=== PATIENT | female | born 1935 | race Caucasian/White ===

== ENCOUNTER 2020-09-18 16:46 | Inpatient (IN) ==
[2020-09-18 18:00] LABS: Basophils # 0.1 K/mcL (0.0-0.2); Basophils % 0.9 %; Eosinophils # 0.2 K/mcL (0.0-0.6); Eosinophils % 1.1 %; Hematocrit 31.9 % (35.3-44.9); Hemoglobin 10.1 g/dL (11.5-15.4); Immature Granulocytes % 4.5 % (0-4); Lymphocytes # 1.1 K/mcL (0.6-4.6); Lymphocytes % 7.4 %; Mean Corpuscular HGB Conc 31.7 g/dL (31.6-35.5); Mean Corpuscular Volume 91.7 fL (83.0-100.0); Mean Platelet Volume 8.8 fL (9.4-12.4); Monocytes # 0.8 K/mcL (0.0-1.3); Monocytes % 5.2 %; Neutrophils # 12.2 K/mcL (1.6-8.9); Nucleated Red Blood Cells 0.1 /100 WBC (0); Platelet Count 798 K/mcL (140-400); Red Blood Count 3.48 M/mcL (3.82-4.97); Red Cell Distribution Width 14.4 % (11.5-14.5); Segmented Neutrophils % 80.9 %
[2020-09-18 18:07] LABS: Bilirubin,Urine Small (Negative); Blood,Urine Large (Negative); Clarity,Urine Turbid (Clear); Color,Urine Brown (Yellow); Glucose,Urine (UA) Normal (Normal); Ketones,Urine Negative (Negative); Leukocyte Esterase,Urine Small (Negative); Nitrite,Urine Negative (Negative); PH,Urine 5.5 pH Units (5.0-8.0); Protein,Urine >=300 mg/dL (Neg-Trace); Specific Gravity,Urine >= 1.030 (1.010-1.025); Urobilinogen,Urine Normal (Normal)
[2020-09-18 18:21] LABS: Calcium 9.6 mg/dL (8.6-10.3); Potassium 4.9 mEq/L (3.5-5.1)
[2020-09-18 18:24] LABS: Bacteria,Urine Present per hpf (None-Few); RBC,Urine TNTC per hpf (0-3); WBC,Urine Present per hpf (0-3)
[2020-09-18] MEDS ORDERED: 0.9 % Sodium Chloride 1,000 ML IVC ONE (18:34)
[2020-09-18] MEDS ORDERED: Piperacillin/Tazobactam 3.375 GM in 0.9 % Sodium Chloride Mini Bag 100 ML IVPB ONE (19:55)
[2020-09-18 19:56] LABS: INR 1.2; Prothrombin Time 13.9 Seconds (9.4-12.1)
[2020-09-18 19:58] LABS: Activated Partial Thrombo Time 38.1 Seconds (26.0-36.0)
[2020-09-18] MEDS ORDERED: Vancomycin 2,000 MG/520 ML IV.SOLN IVPB STA (20:05)
[2020-09-18 20:10] LABS: Albumin 3.5 g/dL (3.5-5.7); Albumin/Globulin Ratio 0.9 (1.1-2.2); Bilirubin,Direct 0.1 mg/dL (0.0-0.2); Bilirubin,Indirect 0.2 mg/dL (0.0-1.0); Bilirubin,Total 0.3 mg/dL (0.3-1.0); Globulin 4.1 g/dL (2.4-3.5); Magnesium 2.9 mg/dL (1.6-2.6); Phosphorous 5.3 mg/dL (2.7-4.5); Total Protein 7.6 g/dL (6.4-8.9); Troponin I 0.03 ng/mL (< 0.04)
[2020-09-18 21:29] LABS: Uric Acid 8.5 mg/dL (2.3-7.6)
[2020-09-18 21:42] LABS: Thyroid Stimulating Hormone 3.574 mcIU/mL (0.340-5.600)
[2020-09-18] MEDS ORDERED: Naloxone 0.4 MG/ML INJ IVP PRN (23:25)
[2020-09-18] MEDS ORDERED: Acetaminophen 325 MG TABLET PO PRN (23:25)
[2020-09-18] MEDS ORDERED: Ondansetron 4 MG/2 ML VIAL IVP PRN (23:25)
[2020-09-18] MEDS ORDERED: *HR* Dextrose 50 % in Water (Vial) 50 ML VIAL IVP PRN (23:27)
[2020-09-18] MEDS ORDERED: D5% in Water 1,000 ML IVC PRN (23:27)
[2020-09-18] MEDS ORDERED: Dextrose Gel 15 GM/37.5 ML TUBE PO PRN ×2 (23:27)
[2020-09-18] MEDS: Ipratropium/Albuterol Neb 3 ML IH SCH (23:48)
[2020-09-19] MEDS ORDERED: 0.9 % Sodium Chloride 1,000 ML IVC SCH (01:15)
[2020-09-19] MEDS ORDERED: Perflutren Lipid Microsphere 1.3 ML in 0.9 % Sodium Chloride 8.7 ML IVP PRN (01:18)
[2020-09-19] MEDS: Azithromycin 500 MG in 0.9 % Sodium Chloride 250 ML IVPB SCH (01:48)
[2020-09-19] MEDS: Ipratropium/Albuterol Neb 3 ML IH SCH ×4 (03:44→22:05)
[2020-09-19 05:10] LABS: Hemoglobin 9.4 g/dL (11.5-15.4); Mean Corpuscular HGB Conc 31.3 g/dL (31.6-35.5); Mean Corpuscular Hemoglobin 28.7 pg (28.0-33.3); Mean Corpuscular Volume 91.7 fL (83.0-100.0); Nucleated Red Blood Cells 0.1 /100 WBC (0); Red Blood Count 3.27 M/mcL (3.82-4.97); Red Cell Distribution Width 14.6 % (11.5-14.5)
[2020-09-19 05:12] LABS: Basophils # 0.1 K/mcL (0.0-0.2); Basophils % 0.6 %; Eosinophils # 0.2 K/mcL (0.0-0.6); Immature Granulocytes % 4.1 % (0-4); Immature Platelets 1.6 % (1.1-6.1); Lymphocytes # 1.1 K/mcL (0.6-4.6); Lymphocytes % 6.5 %; Monocytes # 0.8 K/mcL (0.0-1.3); Monocytes % 4.9 %; Neutrophils # 13.7 K/mcL (1.6-8.9); Platelet Count 732 K/mcL (140-400); Segmented Neutrophils % 82.9 %; White Blood Count 16.5 K/mcL (4.3-11.1)
[2020-09-19 05:12] LABS: Sodium, Urine 21.7 mEq/L
[2020-09-19 05:13] LABS: Calcium 8.9 mg/dL (8.6-10.3); Magnesium 2.9 mg/dL (1.6-2.6); Phosphorous 5.7 mg/dL (2.7-4.5)
[2020-09-19 05:30] LABS: Protein/Creatinine Ratio,Urine 1.51 mg/mg (0.00-0.20)
[2020-09-19] MEDS: *HR* Heparin 5,000 UNIT/ML VIAL SQ SCH ×3 (06:40→21:41)
[2020-09-19] MEDS: amLODIPine 5 MG TABLET PO SCH (09:31)
[2020-09-19] MEDS: Metoprolol XL (24 HR) Succ 50 MG TAB.ER.24H PO SCH (09:31)
[2020-09-19] MEDS: hydrALAZINE 25 MG TABLET PO SCH (09:32)
[2020-09-19] MEDS: Insulin LISPRO 300 UNITS/3 ML VIAL SUBQ SCH ×4 (09:32→21:35)
[2020-09-19] MEDS: Piperacillin/Tazobactam 3.375 GM in 0.9 % Sodium Chloride Mini Bag 100 ML IVPB SCH ×2 (09:33→21:40)
[2020-09-20] MEDS: Azithromycin 500 MG in 0.9 % Sodium Chloride 250 ML IVPB SCH (02:34)
[2020-09-20 03:35] LABS: Basophils # 0.1 K/mcL (0.0-0.2); Basophils % 0.9 %; Eosinophils # 0.4 K/mcL (0.0-0.6); Eosinophils % 2.9 %; Hematocrit 28.4 % (35.3-44.9); Hemoglobin 8.7 g/dL (11.5-15.4); Immature Granulocytes % 4.7 % (0-4); Lymphocytes # 1.1 K/mcL (0.6-4.6); Lymphocytes % 7.9 %; Mean Corpuscular HGB Conc 30.6 g/dL (31.6-35.5); Mean Corpuscular Hemoglobin 28.8 pg (28.0-33.3); Mean Platelet Volume 8.5 fL (9.4-12.4); Monocytes # 0.7 K/mcL (0.0-1.3); Platelet Count 639 K/mcL (140-400); Red Blood Count 3.02 M/mcL (3.82-4.97); Red Cell Distribution Width 14.6 % (11.5-14.5); Segmented Neutrophils % 78.6 %
[2020-09-20 03:52] LABS: Calcium 8.6 mg/dL (8.6-10.3); Phosphorous 5.5 mg/dL (2.7-4.5); Potassium 4.7 mEq/L (3.5-5.1)
[2020-09-20] MEDS: Ipratropium Neb 0.5 MG NEBULIZER IH SCH ×4 (03:54→21:39)
[2020-09-20] MEDS: Levalbuterol Neb 1.25 MG/3 ML IH SCH ×4 (03:54→21:39)
[2020-09-20] MEDS: *HR* Heparin 5,000 UNIT/ML VIAL SQ SCH ×3 (06:08→23:22)
[2020-09-20] MEDS: Insulin LISPRO 300 UNITS/3 ML VIAL SUBQ SCH ×4 (07:51→23:18)
[2020-09-20] MEDS: Piperacillin/Tazobactam 3.375 GM in 0.9 % Sodium Chloride Mini Bag 100 ML IVPB SCH (09:05)
[2020-09-20] MEDS: Metoprolol XL (24 HR) Succ 50 MG TAB.ER.24H PO SCH (09:06)
[2020-09-20] MEDS ORDERED: cefTRIAXone 1,000 MG in 0.9 % Sodium Chloride Mini Bag 100 ML IVPB SCH (17:00)
[2020-09-20] MEDS: Fluconazole 100 MG TABLET PO SCH (18:38)
[2020-09-21] MEDS: Ipratropium Neb 0.5 MG NEBULIZER IH SCH ×4 (04:05→21:34)
[2020-09-21] MEDS: Levalbuterol Neb 1.25 MG/3 ML IH SCH ×4 (04:05→21:34)
[2020-09-21] MEDS: *HR* Heparin 5,000 UNIT/ML VIAL SQ SCH ×3 (05:02→21:18)
[2020-09-21 06:02] LABS: Basophils % 0.3 %; Eosinophils # 0.4 K/mcL (0.0-0.6); Eosinophils % 2.4 %; Hematocrit 32.3 % (35.3-44.9); Hemoglobin 9.8 g/dL (11.5-15.4); Immature Granulocytes % 5.4 % (0-4); Lymphocytes # 1.4 K/mcL (0.6-4.6); Lymphocytes % 9.1 %; Mean Corpuscular HGB Conc 30.3 g/dL (31.6-35.5); Mean Corpuscular Hemoglobin 28.6 pg (28.0-33.3); Mean Corpuscular Volume 94.2 fL (83.0-100.0); Mean Platelet Volume 8.7 fL (9.4-12.4); Monocytes # 0.9 K/mcL (0.0-1.3); Monocytes % 5.5 %; Neutrophils # 11.9 K/mcL (1.6-8.9); Nucleated Red Blood Cells 0.1 /100 WBC (0); Platelet Count 636 K/mcL (140-400); Red Blood Count 3.43 M/mcL (3.82-4.97); Red Cell Distribution Width 14.8 % (11.5-14.5); Segmented Neutrophils % 77.3 %; White Blood Count 15.4 K/mcL (4.3-11.1)
[2020-09-21 06:14] LABS: Basophils # 0.1 K/mcL (0.0-0.2)
[2020-09-21 08:24] LABS: Phosphorous 5.6 mg/dL (2.7-4.5); Potassium 4.8 mEq/L (3.5-5.1)
[2020-09-21] MEDS: Insulin LISPRO 300 UNITS/3 ML VIAL SUBQ SCH ×4 (08:47→21:15)
[2020-09-21] MEDS: Fluconazole 100 MG TABLET PO SCH (08:49)
[2020-09-21] MEDS: Metoprolol XL (24 HR) Succ 50 MG TAB.ER.24H PO SCH (08:49)
[2020-09-21] MEDS: cefTRIAXone 2,000 MG in Water for inj. (sterile) 20 ML IVP SCH (16:41)
[2020-09-22] MEDS: Ipratropium Neb 0.5 MG NEBULIZER IH SCH ×4 (03:24→22:10)
[2020-09-22] MEDS: Levalbuterol Neb 1.25 MG/3 ML IH SCH ×4 (03:24→22:10)
[2020-09-22 03:45] LABS: Albumin/Globulin Ratio 0.9 (1.1-2.2); Bilirubin,Indirect 0.2 mg/dL (0.0-1.0); Bilirubin,Total 0.2 mg/dL (0.3-1.0); Calcium 8.8 mg/dL (8.6-10.3); Globulin 3.4 g/dL (2.4-3.5); Magnesium 2.9 mg/dL (1.6-2.6); Phosphorous 5.3 mg/dL (2.7-4.5); Potassium 5.1 mEq/L (3.5-5.1); Total Protein 6.4 g/dL (6.4-8.9)
[2020-09-22] MEDS: *HR* Heparin 5,000 UNIT/ML VIAL SQ SCH ×3 (05:06→21:14)
[2020-09-22 05:37] LABS: Basophils # 0.1 K/mcL (0.0-0.2); Basophils % 0.8 %; Eosinophils # 0.4 K/mcL (0.0-0.6); Eosinophils % 2.6 %; Hematocrit 29.5 % (35.3-44.9); Hemoglobin 9.2 g/dL (11.5-15.4); Immature Granulocytes % 4.5 % (0-4); Lymphocytes # 1.5 K/mcL (0.6-4.6); Lymphocytes % 10.6 %; Mean Corpuscular HGB Conc 31.2 g/dL (31.6-35.5); Mean Corpuscular Hemoglobin 29.6 pg (28.0-33.3); Mean Corpuscular Volume 94.9 fL (83.0-100.0); Mean Platelet Volume 8.7 fL (9.4-12.4); Monocytes % 7.3 %; Neutrophils # 10.3 K/mcL (1.6-8.9); Nucleated Red Blood Cells 0.1 /100 WBC (0); Platelet Count 570 K/mcL (140-400); Red Blood Count 3.11 M/mcL (3.82-4.97); Red Cell Distribution Width 14.9 % (11.5-14.5); Segmented Neutrophils % 74.2 %; White Blood Count 13.9 K/mcL (4.3-11.1)
[2020-09-22 06:22] LABS: Folate 21.5 ng/mL (3.0-16.0)
[2020-09-22 06:26] LABS: Vitamin B12 > 1500 pg/mL (250-1100)
[2020-09-22] MEDS: Insulin LISPRO 300 UNITS/3 ML VIAL SUBQ SCH ×4 (08:31→21:08)
[2020-09-22] MEDS: Fluconazole 100 MG TABLET PO SCH (08:31)
[2020-09-22] MEDS: Metoprolol XL (24 HR) Succ 50 MG TAB.ER.24H PO SCH (08:32)
[2020-09-22] MEDS: Lactobacillus 1 EACH CAP.SPRINK PO SCH ×2 (08:32→21:15)
[2020-09-22] MEDS: amLODIPine 5 MG TABLET PO SCH (09:29)
[2020-09-22] MEDS: hydrALAZINE 25 MG TABLET PO SCH ×2 (09:29→21:15)
[2020-09-22 11:56] LABS: Serine Protease-3 Antibody 6 AU/mL (0-19)
[2020-09-22] MEDS: Sodium Bicarbonate 50 MEQ in 0.45 % Sodium Chloride 1,000 ML IVC SCH (14:13)
[2020-09-22] MEDS: cefTRIAXone 2,000 MG in Water for inj. (sterile) 20 ML IVP SCH (16:27)
[2020-09-23] MEDS: Levalbuterol Neb 1.25 MG/3 ML IH SCH ×4 (03:50→22:25)
[2020-09-23] MEDS: Ipratropium Neb 0.5 MG NEBULIZER IH SCH ×4 (03:50→22:25)
[2020-09-23 05:41] LABS: Basophils # 0.1 K/mcL (0.0-0.2); Basophils % 0.9 %; Eosinophils # 0.4 K/mcL (0.0-0.6); Eosinophils % 3.1 %; Hematocrit 28.8 % (35.3-44.9); Hemoglobin 8.9 g/dL (11.5-15.4); Immature Granulocytes % 4.1 % (0-4); Lymphocytes # 1.3 K/mcL (0.6-4.6); Lymphocytes % 9.6 %; Mean Corpuscular HGB Conc 30.9 g/dL (31.6-35.5); Mean Corpuscular Volume 93.8 fL (83.0-100.0); Mean Platelet Volume 8.6 fL (9.4-12.4); Monocytes # 1.1 K/mcL (0.0-1.3); Neutrophils # 10.3 K/mcL (1.6-8.9); Nucleated Red Blood Cells 0.1 /100 WBC (0); Platelet Count 484 K/mcL (140-400); Red Blood Count 3.07 M/mcL (3.82-4.97); Red Cell Distribution Width 15.1 % (11.5-14.5); Segmented Neutrophils % 74.3 %; White Blood Count 13.9 K/mcL (4.3-11.1)
[2020-09-23] MEDS: *HR* Heparin 5,000 UNIT/ML VIAL SQ SCH ×3 (05:43→20:25)
[2020-09-23 06:01] LABS: Calcium 8.8 mg/dL (8.6-10.3); Magnesium 2.7 mg/dL (1.6-2.6); Phosphorous 4.3 mg/dL (2.7-4.5); Potassium 4.5 mEq/L (3.5-5.1)
[2020-09-23] MEDS: Insulin LISPRO 300 UNITS/3 ML VIAL SUBQ SCH ×4 (07:32→20:27)
[2020-09-23] MEDS: hydrALAZINE 25 MG TABLET PO SCH ×2 (07:32→20:26)
[2020-09-23] MEDS: Lactobacillus 1 EACH CAP.SPRINK PO SCH ×2 (07:32→20:25)
[2020-09-23] MEDS: Metoprolol XL (24 HR) Succ 50 MG TAB.ER.24H PO SCH (07:32)
[2020-09-23] MEDS: amLODIPine 5 MG TABLET PO SCH (07:33)
[2020-09-23] MEDS: cefTRIAXone 2,000 MG in Water for inj. (sterile) 20 ML IVP SCH (18:06)
[2020-09-23] MEDS: Sodium Bicarbonate 50 MEQ in 0.45 % Sodium Chloride 1,000 ML IVC SCH (20:27)
[2020-09-24] MEDS: Sodium Bicarbonate 50 MEQ in 0.45 % Sodium Chloride 1,000 ML IVC SCH (03:18)
[2020-09-24] MEDS: Ipratropium Neb 0.5 MG NEBULIZER IH SCH ×4 (03:25→21:34)
[2020-09-24] MEDS: Levalbuterol Neb 1.25 MG/3 ML IH SCH ×4 (03:25→21:34)
[2020-09-24] MEDS: *HR* Heparin 5,000 UNIT/ML VIAL SQ SCH ×3 (05:03→21:35)
[2020-09-24 05:20] LABS: Basophils # 0.1 K/mcL (0.0-0.2); Basophils % 0.9 %; Eosinophils # 0.3 K/mcL (0.0-0.6); Eosinophils % 2.5 %; Hematocrit 30.5 % (35.3-44.9); Hemoglobin 9.3 g/dL (11.5-15.4); Immature Granulocytes % 4.3 % (0-4); Lymphocytes # 1.5 K/mcL (0.6-4.6); Lymphocytes % 10.9 %; Mean Corpuscular HGB Conc 30.5 g/dL (31.6-35.5); Mean Corpuscular Hemoglobin 29.1 pg (28.0-33.3); Mean Corpuscular Volume 95.3 fL (83.0-100.0); Mean Platelet Volume 8.9 fL (9.4-12.4); Monocytes % 7.4 %; Neutrophils # 9.9 K/mcL (1.6-8.9); Platelet Count 444 K/mcL (140-400); Red Cell Distribution Width 15.4 % (11.5-14.5); White Blood Count 13.3 K/mcL (4.3-11.1)
[2020-09-24 05:41] LABS: Albumin 3.2 g/dL (3.5-5.7); Albumin/Globulin Ratio 0.9 (1.1-2.2); Bilirubin,Indirect 0.2 mg/dL (0.0-1.0); Bilirubin,Total 0.2 mg/dL (0.3-1.0); Calcium 9.2 mg/dL (8.6-10.3); Globulin 3.4 g/dL (2.4-3.5); Magnesium 2.7 mg/dL (1.6-2.6); Phosphorous 4.1 mg/dL (2.7-4.5); Potassium 4.5 mEq/L (3.5-5.1); Total Protein 6.6 g/dL (6.4-8.9)
[2020-09-24] MEDS: Metoprolol XL (24 HR) Succ 50 MG TAB.ER.24H PO SCH (08:09)
[2020-09-24] MEDS: amLODIPine 5 MG TABLET PO SCH (08:09)
[2020-09-24] MEDS: Insulin LISPRO 300 UNITS/3 ML VIAL SUBQ SCH ×4 (08:10→21:31)
[2020-09-24] MEDS: Lactobacillus 1 EACH CAP.SPRINK PO SCH ×2 (08:10→21:28)
[2020-09-24] MEDS: cefTRIAXone 2,000 MG in Water for inj. (sterile) 20 ML IVP SCH (16:24)
[2020-09-24] MEDS: Mirtazapine 15 MG TABLET PO SCH (21:28)
[2020-09-25 01:01] LABS: Basophils # 0.1 K/mcL (0.0-0.2); Basophils % 0.8 %; Eosinophils # 0.3 K/mcL (0.0-0.6); Eosinophils % 1.7 %; Hematocrit 32.3 % (35.3-44.9); Hemoglobin 9.7 g/dL (11.5-15.4); Immature Granulocytes % 3.1 % (0-4); Lymphocytes # 1.1 K/mcL (0.6-4.6); Lymphocytes % 7.8 %; Mean Corpuscular Hemoglobin 28.4 pg (28.0-33.3); Mean Corpuscular Volume 94.7 fL (83.0-100.0); Monocytes # 0.9 K/mcL (0.0-1.3); Monocytes % 6.4 %; Neutrophils # 11.7 K/mcL (1.6-8.9); Nucleated Red Blood Cells 0.1 /100 WBC (0); Platelet Count 457 K/mcL (140-400); Red Blood Count 3.41 M/mcL (3.82-4.97); Red Cell Distribution Width 15.5 % (11.5-14.5); Segmented Neutrophils % 80.2 %; White Blood Count 14.6 K/mcL (4.3-11.1)
[2020-09-25 01:15] LABS: Potassium 4.7 mEq/L (3.5-5.1)
[2020-09-25 01:16] LABS: Calcium 9.5 mg/dL (8.6-10.3); Magnesium 2.8 mg/dL (1.6-2.6)
[2020-09-25] MEDS: Ipratropium Neb 0.5 MG NEBULIZER IH SCH ×4 (03:36→22:35)
[2020-09-25] MEDS: Levalbuterol Neb 1.25 MG/3 ML IH SCH ×4 (03:36→22:35)
[2020-09-25] MEDS: *HR* Heparin 5,000 UNIT/ML VIAL SQ SCH ×3 (06:04→21:41)
[2020-09-25] MEDS: Insulin LISPRO 300 UNITS/3 ML VIAL SUBQ SCH ×4 (07:51→21:41)
[2020-09-25] MEDS: amLODIPine 5 MG TABLET PO SCH (08:04)
[2020-09-25] MEDS: Metoprolol XL (24 HR) Succ 50 MG TAB.ER.24H PO SCH (08:04)
[2020-09-25] MEDS: Lactobacillus 1 EACH CAP.SPRINK PO SCH ×2 (08:04→21:41)
[2020-09-25 12:10] LABS: Amorphous Sediment,Urine Few per hpf (None-Few); Bacteria,Urine Few per hpf (None-Few); Bilirubin,Urine Negative (Negative); Blood,Urine Large (Negative); Clarity,Urine Ex.Turbid (Clear); Color,Urine Yellow (Yellow); Glucose,Urine (UA) Normal (Normal); Ketones,Urine Negative (Negative); Leukocyte Esterase,Urine Large (Negative); Nitrite,Urine Negative (Negative); PH,Urine 5.5 pH Units (5.0-8.0); Protein,Urine 50 mg/dL (Neg-Trace); RBC,Urine TNTC per hpf (0-3); Specific Gravity,Urine 1.017 (1.010-1.025); Urobilinogen,Urine Normal (Normal); WBC,Urine TNTC per hpf (0-3)
[2020-09-25] MEDS: cefTRIAXone 2,000 MG in Water for inj. (sterile) 20 ML IVP SCH (17:57)
[2020-09-25] MEDS: Mirtazapine 15 MG TABLET PO SCH (21:41)
[2020-09-26 03:37] LABS: Basophils # 0.1 K/mcL (0.0-0.2); Basophils % 0.7 %; Eosinophils # 0.2 K/mcL (0.0-0.6); Eosinophils % 1.5 %; Hematocrit 36.1 % (35.3-44.9); Hemoglobin 10.9 g/dL (11.5-15.4); Immature Granulocytes % 2.5 % (0-4); Lymphocytes # 0.9 K/mcL (0.6-4.6); Lymphocytes % 6.6 %; Mean Corpuscular HGB Conc 30.2 g/dL (31.6-35.5); Mean Corpuscular Hemoglobin 29.1 pg (28.0-33.3); Mean Corpuscular Volume 96.5 fL (83.0-100.0); Mean Platelet Volume 9.4 fL (9.4-12.4); Monocytes # 0.9 K/mcL (0.0-1.3); Monocytes % 6.5 %; Neutrophils # 11.3 K/mcL (1.6-8.9); Nucleated Red Blood Cells 0.1 /100 WBC (0); Platelet Count 373 K/mcL (140-400); Red Blood Count 3.74 M/mcL (3.82-4.97); Red Cell Distribution Width 15.8 % (11.5-14.5); Segmented Neutrophils % 82.2 %; White Blood Count 13.8 K/mcL (4.3-11.1)
[2020-09-26] MEDS: Ipratropium Neb 0.5 MG NEBULIZER IH SCH ×4 (03:42→23:40)
[2020-09-26] MEDS: Levalbuterol Neb 1.25 MG/3 ML IH SCH ×4 (03:42→23:40)
[2020-09-26 03:54] LABS: Calcium 9.9 mg/dL (8.6-10.3); Magnesium 2.7 mg/dL (1.6-2.6); Potassium 4.8 mEq/L (3.5-5.1)
[2020-09-26] MEDS: *HR* Heparin 5,000 UNIT/ML VIAL SQ SCH ×3 (05:58→21:20)
[2020-09-26] MEDS: Insulin LISPRO 300 UNITS/3 ML VIAL SUBQ SCH ×4 (07:16→21:20)
[2020-09-26] MEDS: amLODIPine 5 MG TABLET PO SCH (07:40)
[2020-09-26] MEDS: Lactobacillus 1 EACH CAP.SPRINK PO SCH ×2 (07:40→21:20)
[2020-09-26] MEDS: Metoprolol XL (24 HR) Succ 50 MG TAB.ER.24H PO SCH (07:40)
[2020-09-26 14:04] LABS: ABG Base Excess -1 mEq/L (-2 to 3); ABG HCO3 24 mEq/L (21-27); ABG Oxygen Saturation 86 % (95-98); ABG PCO2 41 mmHg (35-45); ABG PH 7.38 pH Units (7.32-7.45); ABG PO2 52 mmHg (85-104); ABG TCO2 26 mEq/L (20-26)
[2020-09-26] MEDS ORDERED: Perflutren Lipid Microsphere 1.3 ML in 0.9 % Sodium Chloride 8.7 ML IVP PRN (14:05)
[2020-09-26] MEDS ORDERED: Furosemide 40 MG/4 ML VIAL IVP ONE (14:29)
[2020-09-26 17:52] LABS: Adenovirus Not Detected (Not Detect); Coronavirus 229E Not Detected (Not Detect); Coronavirus HKU1 Not Detected (Not Detect); Coronavirus NL63 Not Detected (Not Detect); Coronavirus OC43 Not Detected (Not Detect); Human Metapneumovirus DETECTED (Not Detect); Human Rhinovirus/Enterovirus Not Detected (Not Detect); SARS-CoV-2 Not Detected (Not Detect)
[2020-09-26 17:53] LABS: Bordetella Pertussis Not Detected (Not Detect); Chlamydophila pneumoniae Not Detected (Not Detect); Influenza A Subtype 2009 H1 Not Detected (Not Detect); Influenza B Not Detected (Not Detect); Mycoplasma pneumoniae Not Detected (Not Detect); Parainfluenza Virus 1 Not Detected (Not Detect); Parainfluenza Virus 2 Not Detected (Not Detect); Parainfluenza Virus 3 Not Detected (Not Detect); Parainfluenza Virus 4 Not Detected (Not Detect); Respiratory Syncytial Virus Not Detected (Not Detect)
[2020-09-26] MEDS: cefTRIAXone 2,000 MG in Water for inj. (sterile) 20 ML IVP SCH (18:14)
[2020-09-27] MEDS: Ipratropium Neb 0.5 MG NEBULIZER IH SCH ×4 (04:27→22:04)
[2020-09-27] MEDS: Levalbuterol Neb 1.25 MG/3 ML IH SCH ×4 (04:27→22:04)
[2020-09-27] MEDS: *HR* Heparin 5,000 UNIT/ML VIAL SQ SCH ×3 (05:23→21:48)
[2020-09-27 06:07] LABS: VBG HCO3 24 mEq/L (21-27); VBG PCO2 42 mmHg (41-51); VBG PH 7.37 pH Units (7.32-7.42); VBG PO2 94 mmHg (25-50)
[2020-09-27 06:11] LABS: Basophils # 0.1 K/mcL (0.0-0.2); Basophils % 0.6 %; Eosinophils # 0.2 K/mcL (0.0-0.6); Eosinophils % 1.5 %; Hematocrit 31.8 % (35.3-44.9); Hemoglobin 9.7 g/dL (11.5-15.4); Immature Granulocytes % 2.2 % (0-4); Lymphocytes # 0.9 K/mcL (0.6-4.6); Lymphocytes % 7.4 %; Mean Corpuscular HGB Conc 30.5 g/dL (31.6-35.5); Mean Corpuscular Hemoglobin 29.5 pg (28.0-33.3); Mean Corpuscular Volume 96.7 fL (83.0-100.0); Mean Platelet Volume 9.5 fL (9.4-12.4); Monocytes # 0.8 K/mcL (0.0-1.3); Monocytes % 6.8 %; Neutrophils # 10.1 K/mcL (1.6-8.9); Platelet Count 348 K/mcL (140-400); Red Blood Count 3.29 M/mcL (3.82-4.97); Red Cell Distribution Width 15.9 % (11.5-14.5); Segmented Neutrophils % 81.5 %; White Blood Count 12.4 K/mcL (4.3-11.1)
[2020-09-27 06:28] LABS: Calcium 9.7 mg/dL (8.6-10.3); Magnesium 2.7 mg/dL (1.6-2.6); Potassium 4.8 mEq/L (3.5-5.1)
[2020-09-27] MEDS: Insulin LISPRO 300 UNITS/3 ML VIAL SUBQ SCH ×4 (07:25→21:49)
[2020-09-27] MEDS: Metoprolol XL (24 HR) Succ 50 MG TAB.ER.24H PO SCH (09:16)
[2020-09-27] MEDS: Lactobacillus 1 EACH CAP.SPRINK PO SCH ×2 (09:16→21:49)
[2020-09-27] MEDS: Azithromycin 500 MG in 0.9 % Sodium Chloride 250 ML IVPB SCH (11:57)
[2020-09-27] MEDS: Budesonide Neb 0.25 MG/2 ML IH SCH ×2 (12:13→22:04)
[2020-09-27] MEDS: cefTRIAXone 2,000 MG in Water for inj. (sterile) 20 ML IVP SCH (18:00)
[2020-09-28] MEDS: Ipratropium Neb 0.5 MG NEBULIZER IH SCH ×4 (03:47→22:01)
[2020-09-28] MEDS: Levalbuterol Neb 1.25 MG/3 ML IH SCH ×4 (03:47→22:02)
[2020-09-28 05:57] LABS: Basophils # 0.1 K/mcL (0.0-0.2); Basophils % 0.9 %; Eosinophils # 0.1 K/mcL (0.0-0.6); Hematocrit 33.4 % (35.3-44.9); Hemoglobin 9.7 g/dL (11.5-15.4); Immature Granulocytes % 1.3 % (0-4); Lymphocytes % 7.7 %; Mean Corpuscular Hemoglobin 29.5 pg (28.0-33.3); Mean Corpuscular Volume 101.5 fL (83.0-100.0); Mean Platelet Volume 10.3 fL (9.4-12.4); Monocytes % 7.6 %; Neutrophils # 10.4 K/mcL (1.6-8.9); Platelet Count 196 K/mcL (140-400); Red Blood Count 3.29 M/mcL (3.82-4.97); Red Cell Distribution Width 16.2 % (11.5-14.5); Segmented Neutrophils % 81.5 %; White Blood Count 12.8 K/mcL (4.3-11.1)
[2020-09-28] MEDS: *HR* Heparin 5,000 UNIT/ML VIAL SQ SCH ×3 (06:26→20:42)
[2020-09-28 06:42] LABS: Potassium 5.4 mEq/L (3.5-5.1)
[2020-09-28 07:00] LABS: Calcium 9.4 mg/dL (8.6-10.3); Magnesium 2.7 mg/dL (1.6-2.6)
[2020-09-28] MEDS: Insulin LISPRO 300 UNITS/3 ML VIAL SUBQ SCH ×4 (08:01→22:05)
[2020-09-28] MEDS: Metoprolol XL (24 HR) Succ 50 MG TAB.ER.24H PO SCH (08:14)
[2020-09-28] MEDS: Lactobacillus 1 EACH CAP.SPRINK PO SCH ×2 (08:14→20:44)
[2020-09-28] MEDS: Budesonide Neb 0.25 MG/2 ML IH SCH ×2 (09:29→22:01)
[2020-09-28] MEDS: Azithromycin 500 MG in 0.9 % Sodium Chloride 250 ML IVPB SCH (12:01)
[2020-09-28] MEDS ORDERED: Furosemide 20 MG/2 ML VIAL IVP ONE (15:57)
[2020-09-28] MEDS ORDERED: *HR* Metoprolol 5 MG/5 ML VIAL IVP ONE ×2 (15:58→17:31)
[2020-09-28] MEDS: cefTRIAXone 2,000 MG in Water for inj. (sterile) 20 ML IVP SCH (17:20)
[2020-09-29 01:16] LABS: Calcium 9.6 mg/dL (8.6-10.3); Magnesium 2.8 mg/dL (1.6-2.6); Potassium 5.2 mEq/L (3.5-5.1)
[2020-09-29] MEDS: Levalbuterol Neb 1.25 MG/3 ML IH SCH ×4 (04:17→22:01)
[2020-09-29] MEDS: Ipratropium Neb 0.5 MG NEBULIZER IH SCH ×4 (04:20→22:01)
[2020-09-29] MEDS: *HR* Heparin 5,000 UNIT/ML VIAL SQ SCH (05:33)
[2020-09-29] MEDS: Insulin LISPRO 300 UNITS/3 ML VIAL SUBQ SCH ×4 (07:36→21:00)
[2020-09-29] MEDS: Lactobacillus 1 EACH CAP.SPRINK PO SCH ×2 (07:47→20:59)
[2020-09-29] MEDS: Metoprolol XL (24 HR) Succ 50 MG TAB.ER.24H PO SCH (07:47)
[2020-09-29] MEDS ORDERED: amLODIPine 5 MG TABLET PO SCH (09:00)
[2020-09-29 09:20] LABS: Basophils # 0.1 K/mcL (0.0-0.2); Basophils % 0.6 %; Eosinophils # 0.2 K/mcL (0.0-0.6); Eosinophils % 1.4 %; Hematocrit 31.1 % (35.3-44.9); Hemoglobin 9.4 g/dL (11.5-15.4); Lymphocytes # 0.9 K/mcL (0.6-4.6); Lymphocytes % 6.7 %; Mean Corpuscular HGB Conc 30.2 g/dL (31.6-35.5); Mean Corpuscular Hemoglobin 29.3 pg (28.0-33.3); Mean Corpuscular Volume 96.9 fL (83.0-100.0); Mean Platelet Volume 9.5 fL (9.4-12.4); Monocytes % 7.4 %; Neutrophils # 11.3 K/mcL (1.6-8.9); Platelet Count 349 K/mcL (140-400); Red Blood Count 3.21 M/mcL (3.82-4.97); Red Cell Distribution Width 16.4 % (11.5-14.5); Segmented Neutrophils % 82.9 %; White Blood Count 13.6 K/mcL (4.3-11.1)
[2020-09-29] MEDS ORDERED: Furosemide 40 MG/4 ML VIAL IVP ONE (09:36)
[2020-09-29] MEDS ORDERED: Budesonide Neb 0.25 MG/2 ML IH SCH (10:00)
[2020-09-29] MEDS: Azithromycin 500 MG in 0.9 % Sodium Chloride 250 ML IVPB SCH (10:16)
[2020-09-29] MEDS: Budesonide Neb 0.5 MG/2 ML IH SCH ×2 (10:36→22:01)
[2020-09-29] MEDS ORDERED: *HR* Heparin 5,000 UNIT/ML VIAL IVP ONE (10:52)
[2020-09-29] MEDS ORDERED: *HR* Heparin 5,000 UNIT/ML VIAL IVP PRN (10:52)
[2020-09-29] MEDS: DilTIAZem 50 MG/50 ML IV.SOLN IVC SCH ×3 (11:30→22:27)
[2020-09-29 11:37] LABS: INR 1.2; Prothrombin Time 13.4 Seconds (9.4-12.1)
[2020-09-29 11:40] LABS: Heparin anti-factor XA UFH < 0.04 IU/mL (0.30-0.70)
[2020-09-29] MEDS: *HR* Heparin 5,000 UNIT/ML VIAL IVP PRN (13:05)
[2020-09-29] MEDS: Heparin 25,000UNIT/250ML 1/2NS 25,000 UNIT/250 ML IV.SOLN IVC SCH (13:07)
[2020-09-29] MEDS: cefTRIAXone 2,000 MG in Water for inj. (sterile) 20 ML IVP SCH (17:30)
[2020-09-30 02:59] LABS: Basophils # 0.1 K/mcL (0.0-0.2); Basophils % 0.6 %; Eosinophils # 0.2 K/mcL (0.0-0.6); Eosinophils % 1.2 %; Hematocrit 31.6 % (35.3-44.9); Hemoglobin 9.4 g/dL (11.5-15.4); Immature Granulocytes % 1.2 % (0-4); Lymphocytes # 1.1 K/mcL (0.6-4.6); Lymphocytes % 7.4 %; Mean Corpuscular HGB Conc 29.7 g/dL (31.6-35.5); Mean Corpuscular Hemoglobin 29.1 pg (28.0-33.3); Mean Corpuscular Volume 97.8 fL (83.0-100.0); Mean Platelet Volume 9.5 fL (9.4-12.4); Monocytes % 7.1 %; Platelet Count 352 K/mcL (140-400); Red Blood Count 3.23 M/mcL (3.82-4.97); Red Cell Distribution Width 16.4 % (11.5-14.5); Segmented Neutrophils % 82.5 %; White Blood Count 14.5 K/mcL (4.3-11.1)
[2020-09-30 03:18] LABS: Calcium 9.8 mg/dL (8.6-10.3); Magnesium 2.5 mg/dL (1.6-2.6); Potassium 4.7 mEq/L (3.5-5.1)
[2020-09-30] MEDS: Ipratropium Neb 0.5 MG NEBULIZER IH SCH ×4 (03:51→22:37)
[2020-09-30] MEDS: Levalbuterol Neb 1.25 MG/3 ML IH SCH ×4 (03:51→22:37)
[2020-09-30] MEDS: Heparin 25,000UNIT/250ML 1/2NS 25,000 UNIT/250 ML IV.SOLN IVC SCH ×2 (05:06→21:12)
[2020-09-30] MEDS: DilTIAZem 50 MG/50 ML IV.SOLN IVC SCH ×2 (08:58→20:46)
[2020-09-30] MEDS: Lactobacillus 1 EACH CAP.SPRINK PO SCH ×2 (08:58→20:47)
[2020-09-30] MEDS: Budesonide Neb 0.5 MG/2 ML IH SCH ×2 (09:44→22:37)
[2020-09-30] MEDS: Insulin LISPRO 300 UNITS/3 ML VIAL SUBQ SCH ×4 (11:16→20:49)
[2020-09-30] MEDS: Azithromycin 500 MG in 0.9 % Sodium Chloride 250 ML IVPB SCH (11:41)
[2020-09-30] MEDS: cefTRIAXone 2,000 MG in Water for inj. (sterile) 20 ML IVP SCH (17:05)
[2020-09-30 17:55] LABS: ABG Base Excess 0 mEq/L (-2 to 3); ABG HCO3 25 mEq/L (21-27); ABG Oxygen Saturation 89 % (95-98); ABG PCO2 41 mmHg (35-45); ABG PH 7.39 pH Units (7.32-7.45); ABG PO2 58 mmHg (85-104); ABG TCO2 26 mEq/L (20-26)
[2020-09-30] MEDS ORDERED: Mirtazapine 15 MG TABLET PO SCH (21:00)
[2020-10-01] MEDS: Ipratropium Neb 0.5 MG NEBULIZER IH SCH ×2 (04:15→10:02)
[2020-10-01] MEDS: Levalbuterol Neb 1.25 MG/3 ML IH SCH ×2 (04:15→10:02)
[2020-10-01] MEDS: DilTIAZem 50 MG/50 ML IV.SOLN IVC SCH ×2 (04:37→09:33)
[2020-10-01 04:41] LABS: Basophils # 0.1 K/mcL (0.0-0.2); Basophils % 0.7 %; Eosinophils # 0.2 K/mcL (0.0-0.6); Eosinophils % 1.2 %; Hematocrit 27.5 % (35.3-44.9); Hemoglobin 8.1 g/dL (11.5-15.4); Immature Granulocytes % 1.2 % (0-4); Lymphocytes % 7.7 %; Mean Corpuscular HGB Conc 29.5 g/dL (31.6-35.5); Mean Corpuscular Hemoglobin 29.1 pg (28.0-33.3); Mean Corpuscular Volume 98.9 fL (83.0-100.0); Mean Platelet Volume 9.9 fL (9.4-12.4); Monocytes % 7.5 %; Neutrophils # 10.5 K/mcL (1.6-8.9); Platelet Count 341 K/mcL (140-400); Red Blood Count 2.78 M/mcL (3.82-4.97); Red Cell Distribution Width 16.5 % (11.5-14.5); Segmented Neutrophils % 81.7 %; White Blood Count 12.9 K/mcL (4.3-11.1)
[2020-10-01] MEDS: *HR* Heparin 5,000 UNIT/ML VIAL IVP PRN (04:50)
[2020-10-01 04:51] LABS: Calcium 9.3 mg/dL (8.6-10.3); Magnesium 2.4 mg/dL (1.6-2.6)
[2020-10-01] MEDS: Heparin 25,000UNIT/250ML 1/2NS 25,000 UNIT/250 ML IV.SOLN IVC SCH (05:59)
[2020-10-01] MEDS: Lactobacillus 1 EACH CAP.SPRINK PO SCH (07:42)
[2020-10-01] MEDS: Insulin LISPRO 300 UNITS/3 ML VIAL SUBQ SCH (07:42)
[2020-10-01] MEDS ORDERED: Metoprolol XL (24 HR) Succ 25 MG TAB.ER.24H PO SCH (10:00)
[2020-10-01] MEDS: Budesonide Neb 0.5 MG/2 ML IH SCH (10:02)
[2020-10-01] MEDS ORDERED: Atropine 1% Opth Drops 100 DROP/5 ML BOTTLE SL PRN (10:48)
[2020-10-01] MEDS ORDERED: *HR* FentaNYL (PF) 100 MCG/2 ML VIAL IVP PRN (10:49)
[2020-10-01] MEDS: Haloperidol Lactate 5 MG/ML VIAL IVP PRN ×3 (11:15→23:37)
[2020-10-01] MEDS: Morphine Sulfate Oral CONC 10 MG/0.5 ML ORAL.SYG SL PRN ×5 (11:16→23:36)
[2020-10-01] MEDS: *HR* LORazepam 2 MG/ML VIAL IVP PRN ×2 (14:09→19:42)
[2020-10-02 08:36] VITALS: BP 103/46
[2020-10-02] MEDS: Haloperidol Lactate 5 MG/ML VIAL IVP PRN (08:55)
[2020-10-02] MEDS: Morphine Sulfate Oral CONC 10 MG/0.5 ML ORAL.SYG SL PRN (08:57)
[2020-10-02] MEDS: *HR* LORazepam 2 MG/ML VIAL IVP PRN (10:19)
== END 2020-10-02 11:35 | disposition hospice, inpatient (51) | DRG 871 ==
LOC: 2ANU 16:46 → EMEROOARM 16:46 → SUATTDRO 21:23 → 2ANU 22:00 → SUATTDRO 09-19 16:45 → 2NNU 09-28 16:30 → 2ANU 10-01 12:15
PROVIDERS: ADMIT Internal Medicine; ATTEND Internal Medicine

== ENCOUNTER 2020-10-02 10:08 | Inpatient (IN) ==
[2020-10-02] MEDS ORDERED: Atropine 1% Opth Drops 100 DROP/5 ML BOTTLE SL PRN (11:03)
[2020-10-02] MEDS ORDERED: Haloperidol Lactate 5 MG/ML VIAL IVP PRN (11:04)
[2020-10-02] MEDS ORDERED: Morphine Sulfate Oral CONC 10 MG/0.5 ML ORAL.SYG SL PRN (11:05)
[2020-10-02] MEDS ORDERED: *HR* FentaNYL (PF) 100 MCG/2 ML VIAL IVP PRN (11:05)
[2020-10-02] MEDS ORDERED: Acetaminophen 650 MG RECTAL SUPP RC PRN (13:10)
[2020-10-02] MEDS: Haloperidol Oral Conc 10 MG/5 ML UDC PO SCH ×2 (14:37→18:17)
[2020-10-02] MEDS: *HR* LORazepam 2 MG/ML VIAL IVP PRN ×2 (15:27→20:06)
[2020-10-02 18:29] VITALS: BP 94/37
== END 2020-10-02 20:55 | disposition expired | DRG 951 ==
LOC: 2ANU 12:30
PROVIDERS: ADMIT Internal Medicine Hospice and Palliative Medicine; ATTEND Internal Medicine Hospice and Palliative Medicine